=== PATIENT | male | born 1970 | race Caucasian/White ===

== ENCOUNTER 2021-04-19 01:02 | Observation (INO) ==
[2021-04-19] MEDS ORDERED: Ondansetron 4 MG/2 ML VIAL IVP PRN ×3 (03:41→11:25)
[2021-04-19] MEDS ORDERED: Naloxone 0.4 MG/ML INJ IVP PRN ×2 (03:41→11:25)
[2021-04-19] MEDS ORDERED: Melatonin 3 MG TABLET PO PRN ×2 (03:41→11:25)
[2021-04-19] MEDS ORDERED: *HR* Promethazine 25 MG/ML VIAL IM PRN ×2 (03:41→11:25)
[2021-04-19] MEDS ORDERED: 0.9 % Sodium Chloride 1,000 ML IVC SCH (03:45)
[2021-04-19 05:49] LABS: Basophils % 0.3 %; Eosinophils # 0.1 K/mcL (0.0-0.6); Eosinophils % 0.5 %; Hematocrit 41.1 % (37.5-50.1); Hemoglobin 13.9 g/dL (12.9-16.9); Immature Granulocytes % 0.3 % (0-4); Lymphocytes # 2.4 K/mcL (0.6-4.6); Lymphocytes % 21.7 %; Mean Corpuscular HGB Conc 33.8 g/dL (31.6-35.5); Mean Corpuscular Hemoglobin 31.2 pg (28.0-33.3); Mean Corpuscular Volume 92.2 fL (83.0-100.0); Monocytes # 0.9 K/mcL (0.0-1.3); Monocytes % 8.6 %; Neutrophils # 7.6 K/mcL (1.6-8.9); Platelet Count 209 K/mcL (140-400); Red Blood Count 4.46 M/mcL (4.19-5.50); Red Cell Distribution Width 13.2 % (11.5-14.5); Segmented Neutrophils % 68.6 %
[2021-04-19 06:12] LABS: BUN/Creatinine Ratio 10 (6-26); Blood Urea Nitrogen 14 mg/dL (6-20); Calcium 8.4 mg/dL (8.6-10.3); Carbon Dioxide 30 mEq/L (23-29); Chloride 103 mEq/L (98-107); Glucose 117 mg/dL (70-105); Osmolality,Calculated 292 (280-300); Potassium 4.1 mEq/L (3.5-5.1); Sodium 140 mEq/L (136-145); eGFR For African Americans > 60 (> 60); eGFR For Non-African Americans 56 (> 60)
[2021-04-19] MEDS ORDERED: *HR* Meperidine 25 MG/ML SYRINGE IVP PRN (08:56)
[2021-04-19] MEDS ORDERED: *HR* HYDROmorphone PF 0.5 MG/0.5 ML SYRINGE IVP PRN (08:56)
[2021-04-19] MEDS ORDERED: Metoprolol XL (24 HR) Succ 50 MG TAB.ER.24H PO SCH (09:00)
[2021-04-19] MEDS ORDERED: Isovue-300 50ML VIAL ONE (09:03)
[2021-04-19] MEDS ORDERED: ceFAZolin 2,000 MG in Water for inj. (sterile) 20 ML IVP ONE (09:16)
[2021-04-19] MEDS ORDERED: *HR* Propofol 200 MG/20 ML VIAL IVP ONE (09:30)
[2021-04-19] MEDS ORDERED: *HR* Succinylcholine 200 MG/10 ML VIAL IVP ONE (09:30)
[2021-04-19] MEDS ORDERED: Lidocaine -MPF 2% 2 ML VIAL ONE (09:30)
[2021-04-19] MEDS ORDERED: *HR* FentaNYL (PF) 100 MCG/2 ML VIAL ONE (09:30)
[2021-04-19] MEDS ORDERED: EPHEDrine 50 MG/ML VIAL ONE (10:04)
[2021-04-19] MEDS: 0.9 % Sodium Chloride 1,000 ML IVC SCH (12:30)
[2021-04-19] MEDS ORDERED: cefTRIAXone 1,000 MG in 0.9 % Sodium Chloride Mini Bag 100 ML IVPB SCH (14:00)
[2021-04-20] MEDS: 0.9 % Sodium Chloride 1,000 ML IVC SCH (01:05)
[2021-04-20 05:11] LABS: Alanine Aminotransferase 15 Units/L (7-52); Albumin 3.4 g/dL (3.5-5.7); Albumin/Globulin Ratio 1.5 (1.1-2.2); Alkaline Phosphatase 59 Units/L (34-104); Aspartate Amino Transferase 9 Units/L (13-39); BUN/Creatinine Ratio 14 (6-26); Bilirubin,Total 0.5 mg/dL (0.3-1.0); Blood Urea Nitrogen 15 mg/dL (6-20); Calcium 8.4 mg/dL (8.6-10.3); Carbon Dioxide 29 mEq/L (23-29); Chloride 105 mEq/L (98-107); Globulin 2.3 g/dL (2.4-3.5); Glucose 111 mg/dL (70-105); Osmolality,Calculated 290 (280-300); Sodium 139 mEq/L (136-145); Total Protein 5.7 g/dL (6.4-8.9); eGFR For African Americans > 60 (> 60); eGFR For Non-African Americans > 60 (> 60)
[2021-04-20 07:27] VITALS: BP 133/82
[2021-04-20] MEDS ORDERED: Metoprolol XL (24 HR) Succ 50 MG TAB.ER.24H PO SCH (09:00)
== END 2021-04-20 09:35 | disposition home or self-care (01) ==
LOC: 3BNU → SUATTDRO 02:51
PROVIDERS: ADMIT Internal Medicine; ATTEND Registered Nurse

== ENCOUNTER 2022-08-03 14:55 | Inpatient (IN) ==
[2022-08-03] MEDS ORDERED: 0.9 % Sodium Chloride 1,000 ML IVC ONE ×2 (15:02→15:40)
[2022-08-03] MEDS ORDERED: Ondansetron 4 MG/2 ML VIAL IVP ONE (15:06)
[2022-08-03 15:23] LABS: VBG HCO3 22 mEq/L (21-27); VBG PCO2 44 mmHg (41-51); VBG PH 7.31 pH Units (7.32-7.42); VBG PO2 46 mmHg (25-50)
[2022-08-03 15:29] LABS: Basophils # 0.1 K/mcL (0.0-0.2); Basophils % 0.8 %; Eosinophils # 0.2 K/mcL (0.0-0.6); Eosinophils % 1.5 %; Hematocrit 48.8 % (37.5-50.1); Hemoglobin 15.9 g/dL (12.9-16.9); Immature Granulocytes % 3.7 % (0-4); Lymphocytes # 5.1 K/mcL (0.6-4.6); Lymphocytes % 35.1 %; Mean Corpuscular HGB Conc 32.6 g/dL (31.6-35.5); Mean Corpuscular Hemoglobin 29.9 pg (28.0-33.3); Mean Corpuscular Volume 91.9 fL (83.0-100.0); Mean Platelet Volume 9.8 fL (9.4-12.4); Monocytes % 7.1 %; Neutrophils # 7.5 K/mcL (1.6-8.9); Platelet Count 312 K/mcL (140-400); Red Blood Count 5.31 M/mcL (4.19-5.50); Segmented Neutrophils % 51.8 %; White Blood Count 14.4 K/mcL (4.3-11.1)
[2022-08-03 15:38] LABS: INR 1.3; Prothrombin Time 14.3 Seconds (9.4-12.1)
[2022-08-03 15:41] LABS: Activated Partial Thrombo Time 31.5 Seconds (26.0-36.0)
[2022-08-03 15:58] LABS: BUN/Creatinine Ratio 14 (6-26); Bilirubin,Direct 0.1 mg/dL (0.0-0.2); Bilirubin,Total 0.4 mg/dL (0.3-1.0); Blood Urea Nitrogen 17 mg/dL (6-20); Calcium 9.7 mg/dL (8.6-10.3); Carbon Dioxide 20 mEq/L (23-29); Chloride 100 mEq/L (98-107); Glucose 147 mg/dL (70-105); Osmolality,Calculated 290 (280-300); Phosphorous 2.4 mg/dL (2.7-4.5); Potassium 3.6 mEq/L (3.5-5.1); Sodium 138 mEq/L (136-145)
[2022-08-03 15:59] LABS: Alanine Aminotransferase 23 Units/L (7-52); Albumin 4.3 g/dL (3.5-5.7); Albumin/Globulin Ratio 1.3 (1.1-2.2); Alkaline Phosphatase 104 Units/L (34-104); Aspartate Amino Transferase 19 Units/L (13-39); Bilirubin,Indirect 0.3 mg/dL (0.0-1.0); Globulin 3.2 g/dL (2.4-3.5); Lipase 28 Units/L (11-82); Total Protein 7.5 g/dL (6.4-8.9); Troponin I < 0.03 ng/mL (< 0.04)
[2022-08-03] MEDS ORDERED: *HR* LORazepam 2 MG/ML VIAL ONE (16:53)
[2022-08-03] MEDS ORDERED: levETIRAcetam 1,000 MG in 0.9 % Sodium Chloride 100 ML IVPB ONE (16:57)
[2022-08-03] MEDS ORDERED: *HR* LORazepam 2 MG/ML VIAL IVP ONE (17:07)
[2022-08-03 17:30] LABS: Bacteria,Urine Few per hpf (None-Few); Bilirubin,Urine Negative (Negative); Blood,Urine Large (Negative); Clarity,Urine Clear (Clear); Color,Urine Light-Yellow (Yellow); Glucose,Urine (UA) Normal (Normal); Hyaline Casts,Urine Moderate per lpf (None Seen); Ketones,Urine Trace mg/dL (Negative); Leukocyte Esterase,Urine Small (Negative); Mucus,Urine Few per lpf (None-Few); Nitrite,Urine Positive (Negative); PH,Urine 5.5 pH Units (5.0-8.0); Protein,Urine 50 mg/dL (Neg-Trace); RBC,Urine TNTC per hpf (0-3); Specific Gravity,Urine 1.022 (1.010-1.025); Squamous Epithelial Cell,Urine Few per hpf (None-Few); Urobilinogen,Urine Normal (Normal); WBC,Urine 15-30 per hpf (0-3)
[2022-08-03] MEDS ORDERED: cefTRIAXone 1,000 MG in 0.9 % Sodium Chloride 10 ML IVP ONE (17:42)
[2022-08-03] MEDS ORDERED: Naloxone 0.4 MG/ML INJ IVP PRN (18:41)
[2022-08-03] MEDS ORDERED: Ondansetron 4 MG/2 ML VIAL IVP PRN (18:41)
[2022-08-03] MEDS ORDERED: Acetaminophen 325 MG TABLET PO PRN (18:41)
[2022-08-03] MEDS: Ringers Solution, Lactated 1,000 ML IVC SCH (20:27)
[2022-08-03] MEDS: *HR* HYDROcodone/Acet 5/325 mg TABLET PO PRN (21:57)
[2022-08-04] MEDS: Apixaban 5 MG TABLET PO SCH ×3 (00:13→19:43)
[2022-08-04] MEDS ORDERED: Iopamidol - 370 500 ML MLS IVP ONE ×2 (02:04)
[2022-08-04 02:44] LABS: Basophils % 0.2 %; Eosinophils % 0.1 %; Hematocrit 40.1 % (37.5-50.1); Immature Granulocytes % 0.7 % (0-4); Lymphocytes # 1.5 K/mcL (0.6-4.6); Lymphocytes % 12.7 %; Mean Corpuscular HGB Conc 33.2 g/dL (31.6-35.5); Mean Corpuscular Hemoglobin 30.4 pg (28.0-33.3); Mean Corpuscular Volume 91.8 fL (83.0-100.0); Monocytes # 0.8 K/mcL (0.0-1.3); Monocytes % 7.2 %; Neutrophils # 9.2 K/mcL (1.6-8.9); Platelet Count 196 K/mcL (140-400); Red Blood Count 4.37 M/mcL (4.19-5.50); Segmented Neutrophils % 79.1 %; White Blood Count 11.6 K/mcL (4.3-11.1)
[2022-08-04 02:52] LABS: Hemoglobin 13.3 g/dL (12.9-16.9)
[2022-08-04 02:59] LABS: INR 1.3; Prothrombin Time 14.6 Seconds (9.4-12.1)
[2022-08-04 03:08] LABS: Estimated Average Glucose 126 mg/dl
[2022-08-04 03:11] LABS: Alanine Aminotransferase 18 Units/L (7-52); Albumin 3.5 g/dL (3.5-5.7); Albumin/Globulin Ratio 1.5 (1.1-2.2); Alkaline Phosphatase 77 Units/L (34-104); Aspartate Amino Transferase 21 Units/L (13-39); BUN/Creatinine Ratio 13 (6-26); Bilirubin,Total 0.5 mg/dL (0.3-1.0); Blood Urea Nitrogen 14 mg/dL (6-20); Calcium 8.2 mg/dL (8.6-10.3); Carbon Dioxide 25 mEq/L (23-29); Chloride 105 mEq/L (98-107); Chol/HDL Ratio 3.6 (0-4.9); Cholesterol 128 mg/dL (< 200); Globulin 2.4 g/dL (2.4-3.5); Glucose 116 mg/dL (70-105); HDL Cholesterol 36 mg/dL (40-59); LDL Cholesterol,Calculated 73 mg/dL (< 100); Osmolality,Calculated 289 (280-300); Phosphorous 3.2 mg/dL (2.7-4.5); Potassium 3.9 mEq/L (3.5-5.1); Sodium 139 mEq/L (136-145); Total Protein 5.9 g/dL (6.4-8.9); Triglycerides 97 mg/dL (< 150); Troponin I < 0.03 ng/mL (< 0.04)
[2022-08-04 03:20] LABS: ABG Base Excess -1 mEq/L (-2 to 3); ABG HCO3 25 mEq/L (21-27); ABG Oxygen Saturation 98 % (95-98); ABG PCO2 44 mmHg (35-45); ABG PH 7.36 pH Units (7.32-7.45); ABG PO2 104 mmHg (85-104); ABG TCO2 27 mEq/L (20-26)
[2022-08-04 03:22] LABS: Prolactin 11.66 ng/mL (3.00-14.70)
[2022-08-04 03:52] LABS: Creatine Kinase 530 Units/L (30-223)
[2022-08-04] MEDS ORDERED: levETIRAcetam 1,000 MG in 0.9 % Sodium Chloride 100 ML IVPB ONE (04:10)
[2022-08-04] MEDS: Ringers Solution, Lactated 1,000 ML IVC SCH (04:42)
[2022-08-04] MEDS ORDERED: 0.9 % Sodium Chloride 500 ML IVC SCH (04:45)
[2022-08-04] MEDS ORDERED: Ipratropium/Albuterol Neb 3 ML IH PRN (08:01)
[2022-08-04] MEDS ORDERED: levETIRAcetam 250 MG TABLET PO SCH (09:00)
[2022-08-04] MEDS: cefTRIAXone 1,000 MG in 0.9 % Sodium Chloride 10 ML IVP SCH (09:15)
[2022-08-04] MEDS: Aspirin Enteric Coated 81 MG Tablet PO SCH (09:15)
[2022-08-04] MEDS: levETIRAcetam 1,000 MG in 0.9 % Sodium Chloride 100 ML IVPB SCH ×2 (10:52→21:12)
[2022-08-04] MEDS: Ipratropium/Albuterol Neb 3 ML IH SCH ×4 (11:17→23:21)
[2022-08-05 02:52] LABS: Basophils # 0.1 K/mcL (0.0-0.2); Basophils % 0.6 %; Eosinophils # 0.1 K/mcL (0.0-0.6); Eosinophils % 1.1 %; Hematocrit 37.8 % (37.5-50.1); Hemoglobin 12.4 g/dL (12.9-16.9); Immature Granulocytes % 0.6 % (0-4); Lymphocytes # 1.5 K/mcL (0.6-4.6); Lymphocytes % 16.8 %; Mean Corpuscular HGB Conc 32.8 g/dL (31.6-35.5); Mean Corpuscular Volume 91.3 fL (83.0-100.0); Monocytes # 0.7 K/mcL (0.0-1.3); Monocytes % 8.1 %; Neutrophils # 6.5 K/mcL (1.6-8.9); Platelet Count 194 K/mcL (140-400); Red Blood Count 4.14 M/mcL (4.19-5.50); Red Cell Distribution Width 13.2 % (11.5-14.5); Segmented Neutrophils % 72.8 %; White Blood Count 8.9 K/mcL (4.3-11.1)
[2022-08-05 03:10] LABS: Albumin 3.4 g/dL (3.5-5.7); Albumin/Globulin Ratio 1.3 (1.1-2.2); Bilirubin,Total 0.5 mg/dL (0.3-1.0); Calcium 8.3 mg/dL (8.6-10.3); Globulin 2.6 g/dL (2.4-3.5); Potassium 3.5 mEq/L (3.5-5.1)
[2022-08-05] MEDS: Ipratropium/Albuterol Neb 3 ML IH SCH ×6 (04:04→23:02)
[2022-08-05 04:40] LABS: Adenovirus Not Detected (Not Detect); Bordetella Pertussis Not Detected (Not Detect); Chlamydophila pneumoniae Not Detected (Not Detect); Coronavirus 229E Not Detected (Not Detect); Coronavirus HKU1 Not Detected (Not Detect); Coronavirus NL63 Not Detected (Not Detect); Coronavirus OC43 Not Detected (Not Detect); Human Metapneumovirus Not Detected (Not Detect); Human Rhinovirus/Enterovirus Not Detected (Not Detect); Influenza A Subtype 2009 H1 Not Detected (Not Detect); Influenza B Not Detected (Not Detect); Mycoplasma pneumoniae Not Detected (Not Detect); Parainfluenza Virus 1 Not Detected (Not Detect); Parainfluenza Virus 2 Not Detected (Not Detect); Parainfluenza Virus 3 Not Detected (Not Detect); Parainfluenza Virus 4 Not Detected (Not Detect); Respiratory Syncytial Virus Not Detected (Not Detect); SARS-CoV-2 Not Detected (Not Detect)
[2022-08-05] MEDS: Apixaban 5 MG TABLET PO SCH ×2 (09:45→20:00)
[2022-08-05] MEDS: Aspirin Enteric Coated 81 MG Tablet PO SCH (09:45)
[2022-08-05] MEDS: cefTRIAXone 1,000 MG in 0.9 % Sodium Chloride 10 ML IVP SCH (09:46)
[2022-08-05] MEDS: levETIRAcetam 1,000 MG in 0.9 % Sodium Chloride 100 ML IVPB SCH ×2 (09:55→20:00)
[2022-08-06] MEDS: Ipratropium/Albuterol Neb 3 ML IH SCH ×5 (04:06→21:03)
[2022-08-06] MEDS: Apixaban 5 MG TABLET PO SCH ×2 (08:01→19:51)
[2022-08-06] MEDS: Aspirin Enteric Coated 81 MG Tablet PO SCH (08:01)
[2022-08-06] MEDS: levETIRAcetam 1,000 MG in 0.9 % Sodium Chloride 100 ML IVPB SCH (08:01)
[2022-08-06] MEDS: cefTRIAXone 1,000 MG in 0.9 % Sodium Chloride 10 ML IVP SCH (08:32)
[2022-08-06] MEDS: levETIRAcetam 250 MG TABLET PO SCH (17:51)
[2022-08-06] MEDS: *HR* HYDROcodone/Acet 5/325 mg TABLET PO PRN (17:56)
[2022-08-06] MEDS: Metoprolol XL (24 HR) Succ 25 MG TAB.ER.24H PO SCH (19:51)
[2022-08-06] MEDS ORDERED: Melatonin 3 MG TABLET PO SCH (21:00)
[2022-08-07] MEDS: levETIRAcetam 250 MG TABLET PO SCH ×2 (05:54→17:15)
[2022-08-07 05:55] LABS: Basophils # 0.1 K/mcL (0.0-0.2); Basophils % 0.6 %; Eosinophils # 0.2 K/mcL (0.0-0.6); Eosinophils % 2.7 %; Hematocrit 40.5 % (37.5-50.1); Hemoglobin 13.6 g/dL (12.9-16.9); Immature Granulocytes % 0.2 % (0-4); Lymphocytes # 1.7 K/mcL (0.6-4.6); Lymphocytes % 21.1 %; Mean Corpuscular HGB Conc 33.6 g/dL (31.6-35.5); Mean Corpuscular Hemoglobin 30.2 pg (28.0-33.3); Mean Platelet Volume 9.6 fL (9.4-12.4); Monocytes # 0.6 K/mcL (0.0-1.3); Monocytes % 6.8 %; Neutrophils # 5.6 K/mcL (1.6-8.9); Platelet Count 202 K/mcL (140-400); Red Cell Distribution Width 13.3 % (11.5-14.5); Segmented Neutrophils % 68.6 %; White Blood Count 8.2 K/mcL (4.3-11.1)
[2022-08-07 06:19] LABS: Alanine Aminotransferase 17 Units/L (7-52); Albumin 3.6 g/dL (3.5-5.7); Albumin/Globulin Ratio 1.3 (1.1-2.2); Alkaline Phosphatase 74 Units/L (34-104); Aspartate Amino Transferase 14 Units/L (13-39); BUN/Creatinine Ratio 12 (6-26); Bilirubin,Total 0.7 mg/dL (0.3-1.0); Blood Urea Nitrogen 11 mg/dL (6-20); Calcium 9.1 mg/dL (8.6-10.3); Carbon Dioxide 29 mEq/L (23-29); Chloride 100 mEq/L (98-107); Globulin 2.7 g/dL (2.4-3.5); Glucose 108 mg/dL (70-105); Osmolality,Calculated 286 (280-300); Potassium 3.9 mEq/L (3.5-5.1); Sodium 138 mEq/L (136-145); Total Protein 6.3 g/dL (6.4-8.9)
[2022-08-07] MEDS ORDERED: allopurinoL 100 MG TABLET PO SCH (09:00)
[2022-08-07] MEDS: Aspirin Enteric Coated 81 MG Tablet PO SCH (09:12)
[2022-08-07] MEDS: Metoprolol XL (24 HR) Succ 25 MG TAB.ER.24H PO SCH (09:12)
[2022-08-07] MEDS: Apixaban 5 MG TABLET PO SCH (09:12)
[2022-08-07] MEDS: Amoxicillin 500 MG CAPSULE PO SCH ×2 (09:12→14:27)
[2022-08-07 15:13] VITALS: BP 142/78; PULSE 90; TEMP 98.5; O2SAT 100
== END 2022-08-07 18:00 | disposition left against medical advice (07) | DRG 689 ==
LOC: 2NENU 14:55 → EMEROOARM 14:55 → 2NENU 18:40
PROVIDERS: ADMIT General Practice; ATTEND General Practice